=== PATIENT | female | born 2000 | race Caucasian/White ===

== ENCOUNTER 2021-08-26 10:15 | Emergency (ER) | payer OTHER, SELFPAY ==
--- OUTSIDE RECORDS SUMMARY | 2021-08-26 10:20 | XMS REPORT | Continuity of Care Document ---
:1999 Author Organization [facility] Address [address] [place] [address] Care Team Providers Name Role Phone Leanna LAURENT Primary Care Physician Unavailable Mina Attending Clinician Unavailable Randee Attending Clinician Unavailable Ryan Crain Attending Clinician Unavailable Jaci SHAH, T Attending Clinician Unavailable Tessa Guzman Attending Clinician Bala MARX, Gene Attending Clinician Lab, Fam Pob I Attending Clinician Unavailable JUAN Attending Clinician Unavailable Juan MARX Attending Clinician Leanna LAURENT Attending Clinician Unavailable Leanna Laurent MD Attending Clinician Doctor Unassigned, Name Attending Clinician Unavailable Dipesh FITCH Attending Clinician Unavailable Dipesh Banegas Attending Clinician DEVONTE COOPER Attending Clinician Unavailable JUAN Admitting Clinician Unavailable Dipesh FITCH Admitting Clinician Unavailable Payers Payer Name Policy Type Policy Number Effective Date Expiration Date S ource Problems Condition Condition Condition Status Onset Resolution Last Treating Co mments Source Name Details Category Date Date Treatment Clinician Date Mitral Mitral Disease Active Univers valve valve 9-10 ity of prolapse prolapse 00:00: [address] Anxiety Anxiety Disease Active Univers and and 01-29 [place] [facility] PTSD PTSD Disease Active Univers (post-trau (post-trau 01-29 it y of boone tateic 00:00: [place] stress stress 00 Medical disorder) disorder) Bran ch Oligomenor Oligomenor Disease Active U nivers kerri kerri ity of [facility] Allergies, Adverse Reactions, Alerts Allergy Allergy Status Severity Reaction(s) Onset Inactive Treating Comm ents Source Name Type Date Date Clinician CEFDINIR DRUG Active Unknown-Cmnt Un simone INGREDI 01-29 ity of 00:00: [address] Cefdinir Propensi Active Unknown - Uni vers ty to See comments 01-29 ity of adverse 00:00: [place] reaction [address] [place] [address] Omnicef Adverse Active Info Not [facility] Reaction Available [facility] Social History Social Habit Start Date Stop Date Quantity Comments Source Exposure to Yes [facility] SARS-CoV-2 [facility] (event) [place] Sex Assigned At Universit y of [facility] Tobacco use and 2019-09-11 2019-09-11 Never used Universit y of exposure 00:00:00 00:00:00 [facility] Alcohol intake 2019-09-11 2019-09-11 Current University 00:00:00 00:00:00 non-drinker of [facility] alcohol [place] (finding) Smoking Status Start Date Stop Date Source Never smoker [facility] Medications Ordered Filled Start Stop Current Ordering Indication Dosage Frequency Signature Comments Components Source Medication Medication Date Date Medication? Clinician (SIG) Name Name ibuprofen 2020- No 600mg 600 mg, Uni vers (IBU) 07-22 Oral, ity of tablet 600 05:15: 04:08 ONCE, 1 Jaron as mg 00 :00 dose, [facility] 07/21/20 at Branch 2315, TABATHA amoxicillin 2020- No 500mg 500 mg, U nivers (TRIMOX) 07-22 Oral, ity of capsule 500 05:00: 04:08 [place] :[place] dose, [facility] 07/21/20 at Branch 2300, TABATHA
Re ason for Anti-Infec tive: Documented Infection< br>Documen hoda Infection Site: HEENT
D uration of Therapy: 10 days ibuprofen Yes [id number] 600mg Take 1 Univers 600 mg 2-28 tablet by ity of tablet 00:00: mouth [place] 00 every 6 Medical (six) Branch hours as needed for Pain (scale 4-6). benzonatate Yes [id number] 200mg Take 1 Univers 200 mg 2-28 capsule by ity of capsule 00:00: mouth 3 [place] 00 (three) Medical times Branch daily as needed for Cough for up to 20 doses. ondansetron Yes [id number] 4mg Take 1 Univers (ZOFRAN 2-28 tablet by ity of ODT) 4 mg 00:00: mouth [place] disintegrat 00 every 8 Medic al ing tablet (eight) Branch hours as needed for Nausea and Vomiting (N/V). ibuprofen Yes [id number] 600mg Take 1 Univers 600 mg 2-28 tablet by ity of tablet 00:00: mouth [place] 00 every 6 Medical (six) Branch hours as needed for Pain (scale 4-6). benzonatate Yes [id number] 200mg Take 1 Univers 200 mg 2-28 capsule by ity of capsule 00:00: mouth 3 [place] 00 (three) Medical times Branch daily as needed for Cough for up to 20 doses. ondansetron Yes [id number] 4mg Take 1 Univers (ZOFRAN 2-28 tablet by ity of ODT) 4 mg 00:00: mouth [place] disintegrat 00 every 8 Medic al ing tablet (eight) Branch hours as needed for Nausea and Vomiting (N/V). amoxicillin 2020- No [id number] 500mg Take 1 Univers 500 mg 2-28 03-11 capsule by ity of capsule 00:00: 05:59 mouth 3 [place] 00 :00 (three) Medical times Branch daily for 10 days. amoxicillin 2020- No [id number] 500mg Take 1 Univers 500 mg 2-28 03-11 capsule by ity of capsule 00:00: 05:59 mouth 3 [place] 00 :00 (three) Medical times Branch daily for 10 days. Diclofenac Diclofenac 2020-0 Yes No [address] [facility] Sodium Sodium 8-25 [facility] Sprintec 28 Sprintec 28 2020-0 Yes No [address] [facility] 8-18 [facility] 00:[facility] Bactrim DS Bactrim DS 2019-0 2020- No No [address] 8-18 08-28 [facility] - 00:[facility]: [facility]:00 [facility] traMADol 2019-0 2020- No 50mg 50 mg, Univer s (ULTRAM) 4-20 04-20 Oral, ity of tablet 50 20:45: 19:43 ONCE, 1 [place] mg [place] :[place] dose, [facility] 09/11/19 at Branch 1545, Routine ibuprofen 2020-0 Yes [id number] 800mg Take 1 Univers 800 mg 4-20 6 tablet by ity of tablet 00:00: mouth every 8 Medical (eight) Branch hours as needed for Pain (scale 4-6). methocarbam 2020-0 Yes [id number] 500mg Take 1 Univers ol 500 mg 4-20 6 tablet by ity o f tablet 00:00: mouth (four) Medical times Branch daily. ibuprofen 2020-0 Yes [id number] 800mg Take 1 Univers 800 mg 4-20 6 tablet by ity of tablet 00:00: mouth 00 every 8 Medical (eight) Branch hours as needed for Pain (scale 4-6). methocarbam 2020-0 Yes [id number] 500mg Take 1 Univers ol 500 mg 4-20 6 tablet by ity o f tablet 00:00: mouth (four) Medical times Branch daily. ibuprofen 2020-0 Yes [id number] 800mg Take 1 Univers 800 mg 4-20 6 tablet by ity of tablet 00:00: mouth 00 every 8 Medical (eight) Branch hours as needed for Pain (scale 4-6). methocarbam 2020-0 Yes [id number] 500mg Take 1 Univers ol 500 mg 4-20 6 tablet by ity o f tablet 00:00: mouth (four) Medical times Branch daily. ibuprofen 2020-0 Yes [id number] 800mg Take 1 Univers 800 mg 4-20 6 tablet by ity of tablet 00:00: mouth [place] 00 every 8 Medical (eight) Branch hours as needed for Pain (scale 4-6). methocarbam 2020-0 Yes [id number] 500mg Take 1 Univers ol 500 mg 4-20 6 tablet by ity o f tablet 00:00: mouth 4 [place] 00 (four) Medical times Branch daily. ibuprofen 2020-0 Yes [id number] 800mg Take 1 Univers 800 mg 4-20 6 tablet by ity of tablet 00:00: mouth [place] 00 every 8 Medical (eight) Branch hours as needed for Pain (scale 4-6). methocarbam 2020-0 Yes [id number] 500mg Take 1 Univers ol 500 mg 4-20 6 tablet by ity o f tablet 00:00: mouth 4 [place] 00 (four) Medical times Branch daily. sulfamethox 2019-0 2019- No 1{tbl} 1 tablet, Univers azole-trime 4-10 04-10 Oral, ity of thoprim 04:00: 03:20 ONCE, 1 [place] (BACTRIM 00 :00 dose, [facility]) 800-[facility] [facility] tablet 1 TABATHA
Re tablet ason for Anti-Infec tive: Documented Infection< br>Documen hoda Infection Site: Urine
D uration of Therapy: 7 days ibuprofen 2019-0 2019- No 800mg 800 mg, Uni vers (IBU) 4-10 04-10 Oral, ity of tablet 800 03:15: 02:18 ONCE, 1 [place] as mg 00 :00 dose, [facility] 08/31/19 at Branch 2215, TABATHA ondansetron 2020-0 Yes [id number] 4mg Take 1 Univers 4 mg 4-09 tablet by ity of disintegrat 00:00: mouth [place] ing tablet 00 every 8 Medica l (eight) Branch hours as needed for Nausea and Vomiting (N/V). naproxen 2020-0 Yes [id number] 500mg Take 1 U nivers 500 mg 4-09 tablet by ity of tablet 00:00: mouth 2 [place] 00 (two) Medical times Branch daily with meals. ondansetron 2020-0 Yes [id number] 4mg Take 1 Univers 4 mg 4-09 tablet by ity of disintegrat 00:00: mouth [place] ing tablet 00 every 8 Medica l (eight) Branch hours as needed for Nausea and Vomiting (N/V). naproxen 2020-0 Yes [id number] 500mg Take 1 U nivers 500 mg 4-09 tablet by ity of tablet 00:00: mouth 2 [place] 00 (two) Medical times Branch daily with meals. ondansetron 2020-0 Yes [id number] 4mg Take 1 Univers 4 mg 4-09 tablet by ity of disintegrat 00:00: mouth [place] ing tablet 00 every 8 Medica l (eight) Branch hours as needed for Nausea and Vomiting (N/V). naproxen 2020-0 Yes [id number] 500mg Take 1 U nivers 500 mg 4-09 tablet by ity of tablet 00:00: mouth 2 [place] 00 (two) Medical times Branch daily with meals. ondansetron 2020-0 Yes [id number] 4mg Take 1 Univers 4 mg 4-09 tablet by ity of disintegrat 00:00: mouth [place] ing tablet 00 every 8 Medica l (eight) Branch hours as needed for Nausea and Vomiting (N/V). naproxen 2020-0 Yes [id number] 500mg Take 1 U nivers 500 mg 4-09 tablet by ity of tablet 00:00: mouth 2 [place] 00 (two) Medical times Branch daily with meals. ondansetron 2020-0 Yes [id number] 4mg Take 1 Univers 4 mg 4-09 tablet by ity of disintegrat 00:00: mouth [place] ing tablet 00 every 8 Medica l (eight) Branch hours as needed for Nausea and Vomiting (N/V). naproxen 2020-0 Yes [id number] 500mg Take 1 U nivers 500 mg 4-09 tablet by ity of tablet 00:00: mouth 2 [place] 00 (two) Medical times Branch daily with meals. ondansetron 2020-0 Yes [id number] 4mg Take 1 Univers 4 mg 4-09 tablet by ity of disintegrat 00:00: mouth [place] ing tablet 00 every 8 Medica l (eight) Branch hours as needed for Nausea and Vomiting (N/V). naproxen 2020-0 Yes [id number] 500mg Take 1 U nivers 500 mg 4-09 tablet by ity of tablet 00:00: mouth 2 [place] 00 (two) Medical times Branch daily with meals. ondansetron 2020-0 Yes [id number] 4mg Take 1 Univers 4 mg 4-09 tablet by ity of disintegrat 00:00: mouth [place] ing tablet 00 every 8 Medica l (eight) Branch hours as needed for Nausea and Vomiting (N/V). naproxen 2020-0 Yes [id number] 500mg Take 1 U nivers 500 mg 4-09 tablet by ity of tablet 00:00: mouth 2 [place] 00 (two) Medical times Branch daily with meals. ondansetron 2020-0 Yes [id number] 4mg Take 1 Univers 4 mg 4-09 tablet by ity of disintegrat 00:00: mouth [place] ing tablet 00 every 8 Medica l (eight) Branch hours as needed for Nausea and Vomiting (N/V). naproxen 2020-0 Yes [id number] 500mg Take 1 U nivers 500 mg 4-09 tablet by ity of tablet 00:00: mouth 2 [place] 00 (two) Medical times Branch daily with meals. sulfamethox 2020-0 2020- No [id number] 1{tbl} Take 1 Univers azole-trime 4-09 04-24 tablet by it y of thoprim 00:00: 04:59 mouth [place] 800-160 mg 00 :00 every 12 Medic al per tablet (twelve) Branc h hours for 14 days. sulfamethox 2020-0 2020- No [id number] 1{tbl} Take 1 Univers azole-trime 4-09 04-24 tablet by it y of thoprim 00:00: 04:59 mouth [place] 800-160 mg 00 :00 every 12 Medic al per tablet (twelve) Branc h hours for 14 days. sulfamethox 2020-0 2020- No [id number] 1{tbl} Take 1 Univers azole-trime 4-09 04-24 tablet by it y of thoprim 00:00: 04:59 mouth [place] 800-160 mg 00 :00 every 12 Medic al per tablet (twelve) Branc h hours for 14 days. sulfamethox 2020-0 2020- No [id number] 1{tbl} Take 1 Univers azole-trime 4-09 04-24 tablet by it y of thoprim 00:00: 04:59 mouth [place] 800-160 mg 00 :00 every 12 Medic al per tablet (twelve) Branc h hours for 14 days. JUNEL FE 2019-0 Yes TAKE ONE Unive rs 06/12, 28, 1 2-27 (1) ity of mg-20 mcg 00:00: TABLET(S) Jaron as (21)/75 mg 00 BY MOUTH Medic al (7) tablet ONCE A Branch DAY. Yes TAKE ONE Unive rs 06/12, 28, 1 2-27 (1) ity of mg-20 mcg 00:00: TABLET(S) Jaron as (21)/75 mg 00 BY MOUTH Medic al (7) tablet ONCE A Branch DAY. Yes TAKE ONE Unive rs 06/12, 28, 1 2-27 (1) ity of mg-20 mcg 00:00: TABLET(S) Jaron as (21)/75 mg 00 BY MOUTH Medic al (7) tablet ONCE A Branch DAY. Yes TAKE ONE Unive rs 06/12, 28, 1 2-27 (1) ity of mg-20 mcg 00:00: TABLET(S) Jaron as (21)/75 mg 00 BY MOUTH Medic al (7) tablet ONCE A Branch DAY. Yes TAKE ONE Unive rs 06/12, 28, 1 2-27 (1) ity of mg-20 mcg 00:00: TABLET(S) Jaron as (21)/75 mg 00 BY MOUTH Medic al (7) tablet ONCE A Branch DAY. Yes TAKE ONE Unive rs 06/12, 28, 1 2-27 (1) ity of mg-20 mcg 00:00: TABLET(S) Jaron as (21)/75 mg 00 BY MOUTH Medic al (7) tablet ONCE A Branch DAY. Yes TAKE ONE Unive rs 06/12, 28, 1 2-27 (1) ity of mg-20 mcg 00:00: TABLET(S) Jaron as (21)/75 mg 00 BY MOUTH Medic al (7) tablet ONCE A Branch DAY. Yes TAKE ONE Unive rs 06/12, 28, 1 2-27 (1) ity of mg-20 mcg 00:00: TABLET(S) Jaron as (21)/75 mg 00 BY MOUTH Medic al (7) tablet ONCE A Branch DAY. Diogo Lind 2018-05 Yes No [address] [facility] [facility] 05-31 [facility] SERTraline 2020- No [id number] 50mg Take 1 Univers 50 mg 01-29 tablet by ity of tablet 00:00: 00:00 mouth [place] 00 :00 daily. Medical [place] Immunizations Ordered Immunization Filled Immunization Date Status Commen ts Source Name Name Meningococcal 2016-09-16 Completed University of Vaccine 00:00:00 [facility] Meningococcal 2016-09-16 Completed University of Vaccine 00:00:00 [facility] Meningococcal 2016-09-16 Completed University of Vaccine 00:00:00 [facility] Meningococcal 2016-09-16 Completed University of Vaccine 00:00:00 [facility] Meningococcal 2016-09-16 Completed University of Vaccine 00:00:00 [facility] Meningococcal 2016-09-16 Completed University of Vaccine 00:00:00 [facility] Meningococcal 2016-09-16 Completed University of Vaccine 00:00:00 [facility] Meningococcal 2016-09-16 Completed University of Vaccine 00:00:00 [facility] Vital Signs Vital Name Observation Time Observation Value Comments Source Systolic blood 2020-07-22 03:22:00 120 mm[Hg] Univer sity of pressure [facility] Diastolic blood 2020-07-22 03:22:00 74 mm[Hg] Unive rsity of pressure [facility] Heart rate 2020-07-22 03:22:00 112 /min Universi [facility] Body temperature 2020-07-22 03:22:[address] [facility] Respiratory rate 2020-07-22 03:22:00 20 /min [facility] Body weight 2020-07-22 03:22:00 52.164 kg Universi [facility] Oxygen saturation in 2020-07-22 03:22:00 100 /min [facility] Arterial blood by [facility] Pulse oximetry Branch Systolic blood 2019-09-11 18:45:00 127 mm[Hg] Univer sity of pressure [facility] Diastolic blood 2019-09-11 18:45:00 88 mm[Hg] Unive rsity of pressure [facility] Heart rate 2019-09-11 18:45:00 90 /min Universi ty [facility] [place] [facility] Body temperature 2019-09-11 18:45:00 36.39 Shiela Univ ersity [facility] [place] [facility] Respiratory rate 2019-09-11 18:45:00 18 /min Univ ersity [facility] [place] [facility] Body weight 2019-09-11 18:45:00 52.164 kg Universi ty [facility] [place] [facility] Oxygen saturation in 2019-09-11 18:45:00 99 /min University of Arterial blood by [place] Medi alivia Pulse oximetry Branch Systolic blood 2019-09-11 18:45:00 127 mm[Hg] Univer sity of pressure [place] [facility] Diastolic blood 2019-09-11 18:45:00 88 mm[Hg] Unive rsity of pressure [place] [facility] Heart rate 2019-09-11 18:45:00 90 /min Universi ty [facility] [place] [facility] Body temperature 2019-09-11 18:45:00 36.39 Shiela Univ ersity [facility] [place] [facility] Respiratory rate 2019-09-11 18:45:00 18 /min Univ ersity [facility] [place] [facility] Body weight 2019-09-11 18:45:00 52.164 kg Universi ty [facility] [place] [facility] Oxygen saturation in 2019-09-11 18:45:00 99 /min University of Arterial blood by [place] Medi alivia Pulse oximetry Branch Systolic blood 2019-09-01 03:30:00 98 mm[Hg] Univer sity of pressure [place] [facility] Diastolic blood 2019-09-01 03:30:00 77 mm[Hg] Unive rsity of pressure [place] [facility] Heart rate 2019-09-01 03:30:00 76 /min Universi ty [facility] [place] [facility] Respiratory rate 2019-09-01 03:30:00 16 /min Univ ersity of [place] [facility] Oxygen saturation in 2019-09-01 03:30:00 99 /min University of Arterial blood by [place] Medi alivia Pulse oximetry Branch Body temperature 2019-09-01 00:44:00 37.72 Shiela Univ ers[facility] [place] [facility] Body height 2019-09-01 00:44:00 167.6 cm [facility]i [facility] [place] [facility] Body weight 2019-09-01 00:44:00 54.432 kg [facility]i ty [facility] [place] [facility] BMI 2019-09-01 00:44:00 19.37 kg/m2 [facility]i ty [facility] [place] [facility] Systolic blood 2019-09-01 03:30:00 98 mm[Hg] Univer sity of pressure [facility] Diastolic blood 2019-09-01 03:30:00 77 mm[Hg] Unive rsity of pressure [facility] Heart rate 2019-09-01 03:30:00 76 /min [facility] Respiratory rate 2019-09-01 03:30:00 16 /min [facility] Oxygen saturation in 2019-09-01 03:30:00 99 /min [facility] Arterial blood by [facility] Pulse oximetry [place] Body temperature 2019-09-01 00:44:[address] [facility] Body height 2019-09-01 00:44:00 167.6 cm [facility] Body weight 2019-09-01 00:44:00 54.432 kg [facility] BMI 2019-09-01 00:44:00 19.37 kg/m2 [facility] Procedures Procedure Date / Time Performing Clinician Source Performed POCT TEST 2020-07-22 04:08:00 Edilberto Ingram [facility] CONSENT/REFUSAL FOR 2020-07-22 03:14:02 Doctor Unassigned, No Un [facility] DIAGNOSIS AND TREATMENT Name Medical Branch CT HEAD WO CONTRAST 2019-09-11 20:29:53 Eli Martinez [facility] XR CHEST 1 VW 2019-09-11 19:47:33 Juan Eli [facility] XR HAND 3+ VW LEFT 2019-09-11 19:47:[address] [facility] URINALYSIS 2019-09-11 19:37:00 Eli Martinez [place] o f [facility] ADC / LCC - DRUG SCREEN 2019-09-11 19:37:00 Eli Martinez [facility] TRIAGE [facility] CT CERVICAL SPINE WO 2019-09-11 19:36:21 Eli Martinez [facility] CT LUMBAR SPINE WO 2019-09-11 19:36:21 Eli Martinez [facility] CT THORACIC SPINE WO 2019-09-11 19:36:21 Eli Martinez [facility] POCT TEST 2019-09-11 19:00:00 Eli Martinez [facility] NOTICE OF PRIVACY 2019-09-11 18:28:40 Doctor Unassigned, No [facility] PRACTICES Name [facility] CONSENT/REFUSAL FOR 2019-09-11 18:28:07 Doctor Unassigned, No Un [facility] DIAGNOSIS AND TREATMENT Name [facility] XR CHEST 1 VW COVID 2019-09-01 02:17:[address] [facility] URINALYSIS 2019-09-01 01:56:00 Ana Lilia Fitch [facility] EKG-12 LEAD 2019-09-01 01:47:01 Ana Lilia Fitch [facility] CORONAVIRUS COVID-19 2019-09-01 01:27:00 Ana [facility]ilia [facility] LIPASE 2019-09-01 01:21:00 Ana Lilia Fitch [facility] TROPONIN I 2019-09-01 01:21:00 Ana Lilia Fitch [facility] HEPATIC FUNCTION PANEL 2019-09-01 01:21:00 Ana Lilia Fitch [facility] ([id number]) (ALB,T.PRO,BILI [facility] Branch T,BU/BC,ALT,AST,ALK PHOS) BASIC METABOLIC PANEL 2019-09-01 01:21:00 [facility] (NA, K, CL, CO2, [facility] GLUCOSE, BUN, CREATININE, CA) CBC WITH DIFFERENTIAL 2019-09-01 01:21:00 [facility] 2019-09-01 01:19:[address] [facility] Encounters Start End Encounter Admission Attending Care Care Encounter Source Date/Time Date/Time Type Type Clinicians Facility Department ID 2021-06-[address] [facility] [id number] 14:06:01 [facility] 2021-[facility]-[address] [facility] [id number] 14:34:46 [facility] 2021-06-18 Outpatient Randee, STLMLC STLMLC [id number] 14:19:20 [place] [id number] [facility] 2021-06-18 Outpatient Randee, STLMLC STLMLC [id number] 13:02:23 No [id number] [facility] 2021-06-18 Outpatient [place], STLMLC STLMLC [id number] 12:04:55 No [id number] [facility] 2021-06-18 Outpatient Randee, STLMLC STLMLC [id number] 11:39:47 No [id number] [facility] 2021-06-18 Outpatient Crain, STLMLC STLMLC [id number] 11:38:17 Eugenia [id number] [facility] 2021-06-18 Outpatient Crain, STLMLC STLMLC [id number] 11:25:59 Eugenia [id number] [facility] 2021-03-23 [facility] [id number] Univers 01:57:32 [facility] 2021-06-23 2021-06-23 ambulatory STLMLC STLMLC [id number] [facility] 2021-05-21 2021-05-21 ambulatory STLMLC STLMLC [id number] [facility] 2021-05-20 2021-05-20 ambulatory STLMLC STLMLC [id number] [facility] 2021-05-05 2021-05-05 ambulatory STLMLC STLMLC [id number] [facility] 2020-07-22 2020-07-22 LYNDSEY Lewis [id number] Univers 00:00:00 00:00:00 (Out) Cynthia MORRIS [id number] it y of [facility] [id number] Jaron as [id number] [facility] 019 Branch 2020-07-21 2020-07-21 Emergency Edilberto Ingram [facility] [id number] Univers 21:23:00 22:18:00 Tessa Kim [id number] i ty [place] [id number] [place] [id number] [facility] 084 Branch 2020-04-05 2020-04-05 Outpatient STLMLC STLC [id number] [facility] 00:[facility]:00 [facility] l Outpati ent Clinics 2020-01-16 2020-01-16 [facility] [id number] 15:00:00 15:00:00 [facility] l Medicine Outpati ent Clinics 2020-01-16 2020-01-16 [facility] [id number] 09:14:00 09:14:00 [facility] Medicine l Medicine Outpati ent Clinics 2020-01-09 2020-01-09 [facility] [id number] 14:00:00 14:00:00 [facility] Medicine Outpati ent Clinics 2020-01-01 2020-01-01 Telephone [facility] [id number] [facility] 00:00:00 00:00:00 Jaison Kim [id number] [place]y [id number] Profess[place] [phone] Fl dical [address] 2020-01-01 2020-01-01 Telephone Bala [facility] [id number] 00:00:00 00:00:00 Jaison Kim [id number] [place] [id number] Professio [id number] [address] 2019-12-01 2019-12-01 Laboratory Lab, Adc [facility] [id number] Univers 17:20:00 17:40:00 Only Fam Pob I Health [id number] ity of [place] [id number] Jaron as Professio [phone] Me dical [facility] [address] [place] [address] 2019-12-01 2019-12-01 Laboratory Lab, [facility] [id number] 17:20:00 17:40:00 Only Fam Pob I Health [id number] [place] [id number] Professio [id number] nal [facility] Office Building One 2019-12-01 2019-12-01 Outpatient R [facility] [id number] -[id number] Univers 17:20:00 17:20:00 [id number] [facility] 2019-12-01 Outpatient [facility] [id number] Univers 17:20:00 17:20:00 [facility] 2019-10-06 2019-10-06 [facility] [id number] 10:00:00 10:00:00 [facility] Medicine Outpati ent Clinics 2019-09-11 2019-09-11 [facility] [id number] Univers 13:52:41 16:36:00 ELI [facility] 2019-09-11 2019-09-11 Emergency [facility] [id number] Univers 13:52:41 16:36:00 Eli Kim 350.1.13.10 i [place] [id number] [address] 2019-09-11 2019-09-11 Emergency [facility] [id number] 13:52:41 16:36:00 Eli Kim 350.1.13.10 [place] 4.2.7.2.686 [place] [id number] [facility] 2019-09-11 2019-09-11 Outpatient R NATALYA [facility] [id number]-20 Univers 13:00:00 13:00:00 WONDIFUL [id number] ity o f [facility] 2019-09-11 2019-09-11 Outpatient R NATALYA [facility] [id number] Univers 13:00:00 13:00:00 WONDIFUL ity o f [facility] 2019-09-11 2019-09-11 Telemedici Natalya [facility] 1.2.840.114 [id number] Univers 07:23:39 07:38:39 ne Visit Wondiful Leanna [place] 350.1.13.10 [place] [id number] Fl dical [address] 2019-09-11 2019-09-11 Telemedici [facility] 1.2.840.114 [id number] 07:23:39 07:38:39 ne Visit Wondiful Leanna [place] 350.1.13.10 [place] 4.2.7.2.686 Professio [phone] [address] 2019-09-11 2019-09-11 Orders Doctor LYNDSEY 1.2.840.114 [id number] Univers 00:00:00 00:00:00 Only Unassigned, ALEXANDRA 350.1.13.10 ity of [place] [facility] 4.2.7.2.686 Jaron as [id number] [address] 2019-09-11 2019-09-11 Orders Doctor LYNDSEY 1.2.840.114 [id number] 00:00:00 00:00:00 Only Unassigned, ALEXANDRA 350.1.13.10 [place] [facility] 4.2.7.2.686 [id number] [facility] 2019-09-07 2019-09-07 [facility] [id number] 13:20:00 13:20:00 t [facility] Family Medicine Medicine Outpati ent Clinics 2019-08-31 2019-08-31 Emergency X MYAH [facility] ERT [id number] Univers 19:36:29 22:57:00 FOLDOUGO ity of [facility] 2019-08-31 2019-08-31 Emergency [facility] 1.2.840.114 [id number] Univers 19:36:29 22:57:00 Folusho F [place] 350.1.13.10 ity [facility] 4.2.7.2.686 [facility] [id number] [address] 2019-08-31 2019-08-31 Emergency [facility] 1.2.840.114 [id number] 19:36:29 22:57:00 Ana Lilia Kim 350.1.13.10 [place] 4.2.7.2.686 [place] [id number] [facility] 2019-08-26 2019-08-26 Outpatient [facility] [id number] -[id number] Univers 10:40:00 10:40:00 [id number] [facility] 2019-08-26 2019-08-26 [facility] [id number] Univers 10:40:00 10:40:00 ANUSHA [facility] 2019-05-11 2019-05-11 [facility] [id number] 15:40:00 15:40:00 [facility] 2019-04-12 2019-04-12 [facility] [id number] 10:00:00 10:00:00 [facility] ent Clinics Results Test Description Test Time Test Comments Results Result Comments Source POCT TEST 2020-07-22 04:08:00 Test Item Value Reference Range Interpretation Comme nts POCT PREG (test code = 1605) Negative On board controls acceptable with C Line (test code = 3574) Present POCT PREG LOT # (test code = 3575) [id number] POCT PREG TEST DATE (test code = 3576) 02/20/2022 Lab Interpretation (test code = 74936-8) Normal [facility]-20 20:47:00 Test Item Value Reference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 = 770-8) IMM GRAN % (test code 0.20 % = 6636911004) LYMPH % (test code = 10.2 % 736-9) MONO % (test code = 8.2 % 5905-5) EOS % (test code = 4.9 % 713-8) BASO % (test code = 0.5 % 706-2) GRAN MAT x10^3(ANC) 4.17 10*3/uL 1.88-7.09 (test code = 9413870282) IMM GRAN x10^3 (test <0.03 0-0.06 code = 3445041789) LYMPH x10^3 (test code 0.56 10*3/uL 1.32-3.29 L = 731-0) MONO x10^3 (test code 0.45 10*3/uL 0.33-0.92 = 742-7) EOS x10^3 (test code = 0.27 10*3/uL 0.03-0.39 711-2) BASO x10^3 (test code 0.03 10*3/uL 0.01-0.07 = 704-7) Lab Interpretation Abnormal (test code = 25628-5) [facility], [id number] 01:19:00 Test Item Value Reference Range Interpretation Comments POCT PREG (test code = 1605) negative On board controls acceptable with present C Line (test code = 3574) POCT PREG LOT # (test code = 3575) [id number] POCT PREG TEST DATE (test 01-21-2021 code = 3576) Lab Interpretation (test code = Normal 80618-0) [facility]"
[2021-08-26 11:11] LABS: Urine Blood Negative (Negative); Urine Glucose Negative (Negative); Urine Protein Negative (Negative); Urine Specific Gravity >=1.030 (1.005-1.030)
[2021-08-26 11:18] LABS: Urine Specific Gravity/Preg >1.030 (1.005-1.030)
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
--- NOTE | 2021-08-26 13:23 | RAD REPORT ---
EXAM DESCRIPTION: RAD - Ribs Bilateral W/Chest - 08/26/2021 1:06 pm CLINICAL HISTORY: CHEST PAIN COMPARISON: No comparisons FINDINGS: No displaced rib fracture is evident. The lungs appear clear. There is a moderate levoscol iosis of the thoracolumbar spine.
[2021-08-26 17:41] VITALS: BP 105/67; TEMP 99.3; O2SAT 98
== END 2021-08-26 13:41 | disposition home or self-care (01) ==
LOC: ER 10:15
DX: S23.41XA Sprain of ribs, initial encounter (principal); X58.XXXA Exposure to other specified factors, initial encounter; Y93.89 Activity, other specified; Z88.1 Allergy status to other antibiotic agents; I34.1 Nonrheumatic mitral (valve) prolapse
CPT/HCPCS: 71111; 81003; 81025; 99283